=== PATIENT | male | born 1940 | race Caucasian/White ===

== ENCOUNTER 2016-07-11 12:03 | Emergency (ER) | payer OTHER ==
[2016-07-11] MEDS ORDERED: NITROGLYCERIN 0.4 MG TAB SL PRN (12:05)
[2016-07-11] MEDS: SODIUM CHLORIDE 0.9% FLUSH 10 ML SOL IV PRN (12:10)
[2016-07-11 12:18] LABS: BASOPHILS % (AUTO) 1 % (0-3); EOSINOPHILS % (AUTO) 5 % (0-9); HEMATOCRIT 36 % (39-53); MEAN CORPUSCULAR HGB CONC 32.2 gm/dl (32.0-36.0); MONOCYTES % (AUTO) 10.8 % (0-12); NEUTROPHILS % (AUTO) 70.6 % (37-80)
[2016-07-11] MEDS: ASPIRIN 81 MG CHEWABLE CTB PO STA (12:25)
[2016-07-11] MEDS ORDERED: ASPIRIN 81 MG CHEWABLE CTB ONE ×2 (12:26→12:28)
[2016-07-11 12:32] LABS: MEAN CORPUSCULAR VOLUME 75 fL (80-100)
[2016-07-11 12:34] LABS: CALCIUM 8.2 mg/dl (8.5-10.1); POTASSIUM 4.3 mMol/L (3.5-5.1)
[2016-07-11 12:43] LABS: ANISOCYTOSIS SLIGHT AMT; OVALOCYTES PRESENT
[2016-07-11 19:03] VITALS: RESP 20
[2016-07-11] MEDS: HEPARIN SODIUM 5000 U/ML SOL IV ONE (22:40)
[2016-07-11] MEDS ORDERED: HEPARIN SODIUM 5000 U/ML SOL ONE (22:48)
[2016-07-11] MEDS: HEPARIN PREMIX 25,000 U/250 ML SOL IV SCH (22:56)
[2016-07-11 23:41] VITALS: BP 182/92; PULSE 66; TEMP 97.7; O2SAT 96
== END 2016-07-11 23:37 | disposition short-term general hospital (02) | DRG 313 ==
LOC: ED 12:03
DX: R07.9 Chest pain, unspecified (principal); R79.89 Other specified abnormal findings of blood chemistry
CPT/HCPCS: 36415; 71010; 80048; 82550; 84484; 85025; 85610; 85730; 93005; 99285; J1644

== ENCOUNTER 2017-12-30 08:26 | Day surgery (SDC) | payer OTHER ==
[2017-12-30 08:46] VITALS: TEMP 98.4
[2017-12-30] MEDS ORDERED: LIDOCAINE HCL 1% MPF 30 SOL ONE (09:40)
[2017-12-30] MEDS ORDERED: PROPOFOL 500 MG/50 ML EMU IV ONE (09:40)
[2017-12-30 09:55] VITALS: RESP 16
[2017-12-30 10:05] VITALS: BP 117/55; PULSE 53; O2SAT 98
== END 2017-12-30 10:41 | disposition home or self-care (01) | DRG 951 ==
LOC: SURG 08:26
PROVIDERS: ATTEND Surgery
DX: Z12.11 Encounter for screening for malignant neoplasm of colon (principal); Z86.010 Personal history of colon polyps; D12.5 Benign neoplasm of sigmoid colon
CPT/HCPCS: J2001; J2704